=== PATIENT | female | born 1970 | race Two or more races ===

== ENCOUNTER 2020-08-27 15:21 | Emergency (ER) | payer MEDICAID ==
[~2020-08-27] VITALS: Ht 160 cm; Wt 58.0 kg
[2020-08-27 16:56] LABS: BASOPHILS % 0.8 % (0.0-2.0); EOSINOPHILS % 1.9 % (0.0-5.0); HEMOGLOBIN. 13.9 g/dL (12.0-16.0); LYMPHOCYTES % 25.5 % (20.0-50.0); MEAN CORPUSCULAR HEMOGLOBIN 29.4 pg (28.0-32.0); MEAN CORPUSCULAR VOLUME 86.5 fL (81.0-99.0); MEAN PLATELET VOLUME 11.3 fl (7.4-10.4); MONOCYTES % 12.4 % (2.0-8.0); NEUTROPHILS % 59.4 % (40.0-76.0); PLATELET 173 x1000/uL (130-400); RED BLOOD CELL COUNT 4.74 mill/uL (4.2-5.4)
[2020-08-27 17:03] LABS: CHLORIDE 108 mEq/L (98-107)
[2020-08-27] MEDS ORDERED: ASPIRIN 81MG TABLET PO SCH (18:30)
[2020-08-27 22:00] VITALS: BP 126/71
== END 2020-08-27 22:50 | disposition admitted as inpatient to this hospital (09) ==
LOC: ER 15:21 → SUPCPDRO 18:13 → ENRESERV 20:04 → CANRESERV 20:04 → CANBEDREQ 20:08 → ER 22:50
DX: I20.0 Unstable angina (principal); E78.00 Pure hypercholesterolemia, unspecified; R07.89 Other chest pain
CPT/HCPCS: 36415; 71045; 80053; 81025; 83880; 84484; 85025; 93005; 99285; Z7610